=== PATIENT | female | born 1995 | race African-American/Black ===

== ENCOUNTER 2018-01-27 19:23 | Emergency (ER) | payer OTHER ==
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
[2018-01-27 21:47] VITALS: BP 130/84
== END 2018-01-27 21:47 | disposition home or self-care (01) ==
LOC: ER 19:23
DX: S00.12XA Contusion of left eyelid and periocular area, initial encounter (principal); Y04.2XXA Assault by strike against or bumped into by another person, initial encounter; J34.1 Cyst and mucocele of nose and nasal sinus
CPT/HCPCS: 70486; 99284

== ENCOUNTER 2018-10-04 02:44 | Emergency (ER) | payer OTHER ==
[2018-10-04] MEDS ORDERED: METHYLPREDNISOLONE INJ 125 MG/2 ML SDV IV ONE (03:52)
[2018-10-04] MEDS ORDERED: DIPHENHYDRAMINE HCL 50 MG/ML VIAL IV ONE (03:52)
[2018-10-04] MEDS ORDERED: EPINEPHRINE INJ/PF 1 MG/1 ML AMPULE IM ONE ×2 (03:52→04:20)
[2018-10-04] MEDS ORDERED: FAMOTIDINE INJ/PF 20 MG/2 ML SDV IV ONE (03:52)
--- NOTE | 2018-10-04 03:55 | ER Document Report ---
ED General - General Chief Complaint: Allergic Reaction Stated Complaint: ALLERGIC REACTION Time Seen by Provider: 10/04/18 03:46 Primary Care Provider: ARMANDO HURTADO FNP [Primary Care Provider] - Follow up as needed Mode of Arrival: Ambulatory Information source: Patient, [facility] Records Notes: 23-year-old female with hypothyroidism, reflux presents with an allergic reaction after sitting accidentally in a ant hill 4 hours prior to arrival. Patient currently complaining of hand swelling, medial thigh swelling bilaterally and chest tightness. Patient denies difficulty breathing, swallowing, vomiting. Patient denies prior similar symptoms. TRAVEL OUTSIDE OF THE [place] IN LAST 30 DAYS: No - HPI Onset: Just prior to arrival Onset/Duration: Sudden Quality of pain: Burning Severity: Moderate Associated symptoms: Allergy/hay fever, Other - Chest tightness. denies: Fever, Nausea, Vomiting Exacerbated by: Denies Relieved by: Denies Similar symptoms previously: No Recently seen / treated by doctor: No - Related Data Allergies/Adverse Reactions: No Known Allergies Allergy (Unverified 01/29/16 11:10) Past Medical History - General Information source: Patient - Social History Smoking Status: Never Smoker Frequency of alcohol use: Occasional Drug Abuse: None Lives with: Family Family History: Reviewed & Not Pertinent Patient has suicidal ideation: No Patient has homicidal ideation: No - Past Medical History Cardiac Medical History: Denies: Hx Heart Attack, Hx Hypertension Pulmonary Medical History: Denies: Hx Asthma Neurological Medical History: Denies: Hx Cerebrovascular Accident, Hx Seizures Renal/ Medical History: Denies: Hx Peritoneal Dialysis GI Medical History: Denies: Hx Hepatitis, Hx Hiatal Hernia, Hx Ulcer Infectious Medical History: Denies: Hx Hepatitis Past Surgical History: Reports: Hx Thyroid Surgery. Denies: Hx Hysterectomy, Hx Mastectomy, Hx Open Heart Surgery, Hx Pacemaker Review of Systems - Review of Systems Notes: REVIEW OF SYSTEMS: CONSTITUTIONAL : Denies fever, chills, or sweats. Denies recent illness. Denies weight loss, recent hospitalizations. EENT: Denies visual changes, eye pain. Denies sore throat, oral lesions, difficulty swallowing. CARDIOVASCULAR: Denies chest pain. Denies palpitations. Denies lower extremity edema. RESPIRATORY: Denies cough. Denies shortness of breath, wheezing. GASTROINTESTINAL: Denies abdominal pain or distention. Denies nausea, vomiting, or diarrhea. Denies blood in vomitus, stools, or per rectum. Denies black, tarry stools. Denies constipation. GENITOURINARY: Denies difficulty urinating, painful urination, frequency, blood in urine, or vaginal discharge. MUSCULOSKELETAL: Denies back or neck pain or stiffness. Denies joint pain or swelling. SKIN: Erythema bilateral hands, bilateral thighs. HEMATOLOGIC : Denies easy bruising or bleeding. LYMPHATIC: Denies swollen glands. NEUROLOGICAL: Denies confusion or altered mental status. Denies loss of consciousness. Denies dizziness or lightheadedness. Denies headache. Denies weakness or paralysis. Denies problems difficulty with ambulation, slurred speech. Denies sensory loss, numbness, or tingling. Denies seizures. PSYCHIATRIC: Denies anxiety or stress. Denies depression, suicidal ideation, or homicidal ideation. Denies visual or auditory hallucinations. Physical Exam - Vital signs Vitals: Temp Pulse Resp BP Pulse Ox 98.6 F 85 16 105/62 99 10/04/18 02:52 10/04/18 02:52 10/04/18 02:52 10/04/18 02:52 10/04/18 02:52 - Notes Notes: PHYSICAL EXAMINATION: GENERAL: Well-appearing, well-nourished and in no acute distress. HEAD: Atraumatic, normocephalic. EYES: Pupils equal round and reactive to light, extraocular movements intact, conjunctiva are normal. ENT: Nares patent, oropharynx clear without exudates. Moist mucous membranes. NECK: Normal range of motion, supple without lymphadenopathy. No stridor LUNGS: Breath sounds clear to auscultation bilaterally and equal. No wheezes rales or rhonchi. HEART: Regular rate and rhythm without murmurs ABDOMEN: Soft, nontender, nondistended abdomen. No guarding, no rebound. No masses appreciated. Female : deferred Musculoskeletal: Normal range of motion, no pitting or edema. No cyanosis. NEUROLOGICAL: Cranial nerves grossly intact. Normal speech, normal gait. Normal sensory, motor exams PSYCH: Normal mood, normal affect. SKIN: Erythema of the hands and inner thighs bilaterally. No urticarial lesions. Course - Re-evaluation Re-evalutation: Temp Pulse Resp BP Pulse Ox 98.6 F 85 16 105/62 99 10/04/18 02:52 10/04/18 02:52 10/04/18 02:52 10/04/18 02:52 10/04/18 02:52 10/04/18 03:55 22-year-old female presents with swelling of her hands and inner thighs after sitting on an ant hill. Patient also complaining of chest tightness. She did take 2 Benadryl's 3 hours prior to arrival without relief. Patient is in no acute distress. She does not appear toxic or dehydrated. Patient has no associated wheezing, urticarial rash, stridor. Patient was given IM epi, Benadryl, prednisone, Pepcid. Will reevaluate. 10/04/18 05:16 Patient reports complete resolution of her chest tightness, hand swelling and itching. Patient presents with symptoms consistent with an allergic reaction without anaphylaxis. Only cutaneous involvement. Vitals otherwise within normal limits at time of arrival. No respiratory, GI, cardiovascular, or oral pharyngeal symptoms. A trial of epinephrine for symptom resolution was offered to the patient. This did resolve the majority of the patient's hives. Will recommend ongoing antihistamine therapy as an outpatient. At this time will discharge with return precautions and follow-up recommendations. Verbal discharge instructions given a the bedside and opportunity for questions given. Medication warnings reviewed. Patient is in agreement with this plan and has verbalized understanding of return precautions and the need for primary care follow-up in the next 24-72 hours. - Vital Signs Vital signs: Temp Pulse Resp BP Pulse Ox 98.6 F 85 16 105/62 99 10/04/18 02:52 10/04/18 02:52 10/04/18 02:52 10/04/18 02:52 10/04/18 02:52 Discharge - Discharge Clinical Impression: Allergic reaction Qualifiers: Encounter type: initial encounter Qualified Code(s): T78.40XA - Allergy, unspecified, initial encounter Condition: Good Disposition: HOME, SELF-CARE Instructions: Acute Allergic Reaction ([facility]) Additional Instructions: You can take Benadryl 50 mg with the medications you are prescribed if you experience itching or swelling. Please return to the emergency room if you experience shortness of breath, recurrence of rash, swelling, difficulty swallowing or any other symptoms concerning to you. Follow up with your [id number] hours for further care or return to the ED IMMEDIATELY if symptoms worsen or you have any concerns. If you cannot afford to follow up with your primary care physician a list of low cost clinics have been provided at the end of your discharge papers as well. Most prescribed medications have multiple side effects. The safest thing to do is when filling your prescription speak to your pharmacist regarding possible interactions with your normal home medications and over the counter medications such as Ibuprofen, Tylenol, Benadryl. If you experience any symptoms that cause you discomfort or concern you should discontinue the medication immediately and return to the emergency room or call your primary care physician. Prescriptions: Famotidine [Pepcid 40 mg Tablet] 40 mg PO DAILY #5 tablet Prednisone [Deltasone 20 mg Tablet] 40 mg PO DAILY 5 Days #10 tablet Referrals: ARMANDO HURTADO FNP [Primary Care Provider] - Follow up in 3-5 days
[2018-10-04] MEDS ORDERED: HYDROCORTISONE SOD SUCCINATE INJ/PF 100 MG/2 ML SDV ONE (04:04)
[2018-10-04] MEDS ORDERED: METHYLPREDNISOLONE INJ 125 MG/2 ML SDV ONE (04:11)
[2018-10-04] MEDS ORDERED: FAMOTIDINE 20 MG TABLET PO ONE (04:20)
[2018-10-04] MEDS ORDERED: PREDNISONE 20 MG TABLET PO ONE (04:24)
[2018-10-04 05:49] VITALS: BP 114/55
== END 2018-10-04 05:50 | disposition home or self-care (01) ==
LOC: ER 02:44
DX: R07.89 Other chest pain (principal); M79.89 Other specified soft tissue disorders; T78.40XA Allergy, unspecified, initial encounter; X58.XXXA Exposure to other specified factors, initial encounter
CPT/HCPCS: 99282; 96374; J0171; J7512